=== PATIENT | male | born 1995 | race Two or more races ===

== ENCOUNTER 2023-07-22 04:17 | Emergency (ER) | payer OTHER ==
[~2023-07-22] VITALS: Ht 185.4 cm; Wt 97.5 kg
[2023-07-22 04:33] VITALS: TEMP 98.1
[2023-07-22 06:41] VITALS: BP 129/87; O2SAT 98
== END 2023-07-22 06:41 | disposition home or self-care (01) ==
LOC: ER 04:20
DX: R51.9 Headache, unspecified (principal); M25.561 Pain in right knee; V49.9XXA Car occupant (driver) (passenger) injured in unspecified traffic accident, initial encounter; Y93.89 Activity, other specified; Y92.89 Other specified places as the place of occurrence of the external cause; Y99.8 Other external cause status
CPT/HCPCS: 70450-TC